=== PATIENT | female | born 1950 | race Caucasian/White ===

== ENCOUNTER 2022-07-06 17:16 | Emergency (ER) | payer OTHER, MEDICARE ==
[2022-07-06] MEDS ORDERED: fentaNYL 50 MCG/ML SDV IVPUSH ONE (19:28)
== END 2022-07-06 19:54 | disposition short-term general hospital (02) ==
LOC: VM.ED 17:16
DX: S22.20XD Unspecified fracture of sternum, subsequent encounter for fracture with routine healing (principal); V89.2XXA Person injured in unspecified motor-vehicle accident, traffic, initial encounter; Y92.410 Unspecified street and highway as the place of occurrence of the external cause
CPT/HCPCS: 71250; 72125; 96374; 99283; 99285; J3010